=== PATIENT | female | born 1940 | race Caucasian/White ===

== ENCOUNTER 2018-07-22 19:09 | Emergency (ER) | payer MEDICARE, MEDICAID ==
[~2018-07-22] VITALS: Ht 175.3 cm; Wt 99.8 kg
[~2018-07-22 19:09] MED LIST: CLOT1CRE56 TOP; DIAZ10TA3 PO; HYDR-2551 PO; POTA10SO11 PO; PREMARIN PO; [UNRECOGNIZED DRUG - CODE]
[2018-07-22 19:37] VITALS: BP 157/86
[2018-07-22] MEDS ORDERED: DIAZEPAM 5 MG TAB PO ONE (22:30)
== END 2018-07-22 22:50 | disposition home or self-care (01) ==
LOC: ER 19:09
DX: L03.116 Cellulitis of left lower limb (principal); L03.115 Cellulitis of right lower limb; R60.9 Edema, unspecified; F19.20 Other psychoactive substance dependence, uncomplicated; I13.0 Hypertensive heart and chronic kidney disease with heart failure and stage 1 through stage 4 chronic kidney disease, or unspecified chronic kidney disease; N18.9 Chronic kidney disease, unspecified; J44.9 Chronic obstructive pulmonary disease, unspecified; K21.9 Gastro-esophageal reflux disease without esophagitis; E78.5 Hyperlipidemia, unspecified; Z86.73 Personal history of transient ischemic attack (TIA), and cerebral infarction without residual deficits; Z88.1 Allergy status to other antibiotic agents; Z88.2 Allergy status to sulfonamides; Z88.7 Allergy status to serum and vaccine; Z91.041 Radiographic dye allergy status

== ENCOUNTER 2018-12-13 16:37 | Emergency (ER) | payer MEDICARE, MEDICAID ==
[~2018-12-13] VITALS: Ht 175.3 cm; Wt 98.0 kg
[2018-12-13 17:36] VITALS: BP 153/80
== END 2018-12-13 18:09 | disposition home or self-care (01) ==
LOC: ER 16:37
DX: I10 Essential (primary) hypertension (principal); F41.9 Anxiety disorder, unspecified; F17.210 Nicotine dependence, cigarettes, uncomplicated; I13.0 Hypertensive heart and chronic kidney disease with heart failure and stage 1 through stage 4 chronic kidney disease, or unspecified chronic kidney disease; N18.9 Chronic kidney disease, unspecified; I50.9 Heart failure, unspecified; J44.9 Chronic obstructive pulmonary disease, unspecified; F32.9 Major depressive disorder, single episode, unspecified; K21.9 Gastro-esophageal reflux disease without esophagitis; E78.5 Hyperlipidemia, unspecified; Z76.0 Encounter for issue of repeat prescription; Z90.710 Acquired absence of both cervix and uterus; Z86.73 Personal history of transient ischemic attack (TIA), and cerebral infarction without residual deficits; Z88.1 Allergy status to other antibiotic agents; Z88.2 Allergy status to sulfonamides

== ENCOUNTER → 2019-01-31 | Outpatient (CLI) | payer MEDICARE, MEDICAID ==
[2019-01-31 14:55] LABS: Basophils # (auto) 0.1 uL; Basophils % (auto) 0.6 % (0.0-2.0); Eosinophils # (auto) 0.2 uL; Eosinophils % (auto) 2.4 % (0.0-7.0); Hematocrit 49.1 % (36.0-46.0); Hemoglobin 16.3 g/dL (12.2-16.2); Lymphocytes # (auto) 3.3 uL; Mean Corpuscular Hemoglobin 30.6 pg (28.0-32.0); Mean Corpuscular Hgb Conc. 33.2 g/dL (32.0-36.0); Mean Corpuscular Volume 92.2 fL (80.0-100.0); Monocytes # (auto) 0.8 uL; Monocytes % (auto) 8.5 % (0.0-12.0); Neutrophils # (auto) 5.1 uL; Neutrophils % (auto) 53.5 % (37.0-80.0); Nucleated Red Blood Cells % 0.1 %; Platelet Count (auto) 351 10^3/uL (140-450); Red Blood Cells 5.33 10^6/uL (4.0-5.20); White Blood Cell 9.5 10^3/uL (4.4-10.8)
[2019-01-31 15:12] LABS: Albumin 3.4 g/dL (3.4-5.0); Potassium 3.5 mmol/L (3.5-5.1)
[2019-01-31 15:17] LABS: BUN/Creatinine Ratio 15.4; Bilirubin, Total 0.4 mg/dL (0.2-1.0); Total Protein 8.1 g/dL (6.4-8.2)
== END | disposition home or self-care (01) ==
LOC: LAB 14:28
PROVIDERS: ATTEND Internal Medicine
DX: J44.9 Chronic obstructive pulmonary disease, unspecified (principal); E11.22 Type 2 diabetes mellitus with diabetic chronic kidney disease; I13.0 Hypertensive heart and chronic kidney disease with heart failure and stage 1 through stage 4 chronic kidney disease, or unspecified chronic kidney disease; I50.9 Heart failure, unspecified; N18.9 Chronic kidney disease, unspecified; E78.5 Hyperlipidemia, unspecified; E55.9 Vitamin D deficiency, unspecified
CPT/HCPCS: 36415; 80053; 80061; 82306; 83036; 84443; 85025

== ENCOUNTER 2020-09-10 19:26 | Inpatient (IN) | payer MEDICARE, MEDICAID ==
[~2020-09-10] VITALS: Ht 172.7 cm; Wt 105.0 kg
[2020-09-10] MEDS ORDERED: SODIUM CHLORIDE 0.9% 1,000 ML IVB ONE (20:00)
[2020-09-10 20:15] LABS: Basophils # (auto) 0.1 10 ^3/uL (0-0.2); Basophils % (auto) 0.5 % (0.0-2.0); Eosinophils # (auto) 0.2 10 ^3/uL (0-0.8); Eosinophils % (auto) 1.7 % (0.0-7.0); Hematocrit 46.3 % (36.0-46.0); Hemoglobin 15.4 g/dL (12.2-16.2); Lymphocytes # (auto) 2.1 10 ^3/uL (0.4-5.4); Lymphocytes % (auto) 21.6 % (10.0-50.0); Mean Corpuscular Hemoglobin 31.2 pg (28.0-32.0); Mean Corpuscular Hgb Conc. 33.3 g/dL (32.0-36.0); Mean Corpuscular Volume 93.5 fL (80.0-100.0); Monocytes # (auto) 0.7 10 ^3/uL (0-1.3); Monocytes % (auto) 7.5 % (0.0-12.0); Neutrophils # (auto) 6.6 10 ^3/uL (1.6-8.6); Neutrophils % (auto) 68.7 % (37.0-80.0); Nucleated Red Blood Cells % 0.1 %; Platelet Count (auto) 343 10^3/uL (140-450); Red Blood Cells 4.96 10^6/uL (4.0-5.20); Red Cell Distribution Width 12.8 % (11.8-14.3); White Blood Cell 9.5 10^3/uL (4.4-10.8)
[2020-09-10 20:33] LABS: Albumin 3.3 g/dL (3.4-5.0); Anion Gap 5 (5-15); Blood Urea Nitrogen 11 mg/dL (7-18); Calcium 9.1 mg/dL (8.5-10.1); Carbon Dioxide 31 mmol/L (21-32); Chloride 102 mmol/L (98-107); Glucose 138 mg/dL (74-106); Potassium 3.4 mmol/L (3.5-5.1); Sodium 138 mmol/L (136-145)
[2020-09-10 20:38] LABS: Alanine Aminotransferase 18 U/L (13-56); Alkaline Phosphatase 73 U/L (45-117); Aspartate Aminotransferase 21 U/L (15-37); BUN/Creatinine Ratio 14.5; Bilirubin, Total 0.2 mg/dL (0.2-1.0); GFR African American 94 mL/min; GFR Non-African American 78 mL/min; Total Protein 7.8 g/dL (6.4-8.2)
[2020-09-10 21:02] LABS: Partial Thromboplastin Time 25.9 sec (23.0-31.2)
[2020-09-10] MEDS ORDERED: NICOTINE 21MG/24 HR TOPICAL PATCH TD ONE (22:00)
[2020-09-10 22:28] LABS: Urine Bacteria FEW /hpf (None Seen); Urine Blood Negative /uL (Negative); Urine Specific Gravity 1.011 (1.001-1.035); Urine WBC 1 /hpf (0 - 5)
[2020-09-11] MEDS ORDERED: hydrALAZINE HCL 25 MG TAB PO ONE ×2 (00:15→12:15)
[2020-09-11] MEDS ORDERED: HCTZ25T PO (00:21)
[2020-09-11] MEDS ORDERED: POTA10TA75 (00:21)
[2020-09-11] MEDS ORDERED: HYDR-2691 PO ×2 (00:21→10:59)
[2020-09-11] MEDS ORDERED: CHOL20007 PO (00:21)
[2020-09-11] MEDS ORDERED: DIAZ5TAB3 PO (00:21)
[2020-09-11] MEDS ORDERED: MORPHINE SULF INJ 2 MG/ML SYRINGE 1ML IV PRN (01:30)
[2020-09-11] MEDS ORDERED: DOCUSATE SOD 100 MG CAP PO PRN (01:30)
[2020-09-11] MEDS ORDERED: ACETAMINOPHEN 325 MG TAB PO PRN (01:30)
[2020-09-11] MEDS ORDERED: NITROGLYCERIN 0.4 MG SL TAB SL PRN (01:30)
[2020-09-11] MEDS ORDERED: HYDROcodone-ACET 5/325MG TAB PO PRN (01:30)
[2020-09-11] MEDS ORDERED: ONDANSETRON HCL 4 MG/2 ML VIAL IV PRN (01:30)
[2020-09-11] MEDS ORDERED: POTASSIUM CHL 20 Meq TABLET PO ONE ×2 (02:00→02:53)
--- NOTE | 2020-09-11 02:58 | NUR ---
BACK PAIN PATIENT REQUESTING TYLENOL FOR BACK PAIN RATED LEVEL 5/10.
[2020-09-11 05:00] VITALS: BP 122/59
--- NOTE | 2020-09-11 07:30 | NUR ---
Opening Shift Note Assuming care of patient at this time. Patient is awake and alert. Patient denies pain. Patient shows no signs or symptoms of distress or shortness of breath. Bed is locked and lowered with side rails up x2. Instructed patient on plan of care for today and to call for assistance as needed. Call light within reach. Will continue to round hourly and as needed.
--- NOTE | 2020-09-11 08:00 | NUR ---
Skin Assessment Patient has visible, "cellulitis" per patient that has been diagnosed by previous MD. Patient's legs appear to be edematous, rough, and calloused. Patient refuses to allow slipper socks to be taken off to assess feet. Patient refuses to allow RN to touch legs and feet to fully assess and palpate pulses. Patient states, "I have been dealing with this for years and my doctor is aware. There is nothing you can do for them. Please don't touch them." Educated patient that due to her syncope that circulation could potentially be an issue. Patient states, "It's not." Patient refuses to have pictures taken at this time. Patient also refuses skin assessment of any other parts of her body.
[2020-09-11 08:38] VITALS: BP 129/58
[2020-09-11 08:46] LABS: Basophils # (auto) 0.1 10 ^3/uL (0-0.2); Basophils % (auto) 0.8 % (0.0-2.0); Eosinophils # (auto) 0.3 10 ^3/uL (0-0.8); Hematocrit 45.3 % (36.0-46.0); Hemoglobin 15.3 g/dL (12.2-16.2); Mean Corpuscular Hemoglobin 31.3 pg (28.0-32.0); Mean Corpuscular Hgb Conc. 33.9 g/dL (32.0-36.0); Mean Corpuscular Volume 92.6 fL (80.0-100.0); Monocytes # (auto) 0.7 10 ^3/uL (0-1.3); Neutrophils # (auto) 6.3 10 ^3/uL (1.6-8.6); Neutrophils % (auto) 60.2 % (37.0-80.0); Platelet Count (auto) 322 10^3/uL (140-450); Red Blood Cells 4.89 10^6/uL (4.0-5.20); White Blood Cell 10.5 10^3/uL (4.4-10.8)
[2020-09-11 09:01] LABS: Calcium 9.2 mg/dL (8.5-10.1); Cholesterol 198 mg/dL (< 200); Potassium 3.3 mmol/L (3.5-5.1)
[2020-09-11 09:04] LABS: HDL Cholesterol 55 mg/dL (40-59); LDL Cholesterol 119 mg/dL (< 100); Triglycerides 195 mg/dL (< 150)
[2020-09-11] MEDS ORDERED: hydrALAZINE HCL 25 MG TAB PO SCH ×2 (10:00→22:00)
[2020-09-11] MEDS ORDERED: ENOXAPARIN SOD 40 MG/0.4 ML SYRINGE SC SCH (10:00)
[2020-09-11] MEDS ORDERED: ZINC SULFATE 220mg CAP or TAB PO SCH (10:00)
[2020-09-11] MEDS ORDERED: ASPirin 81 mg TAB PO SCH (10:00)
[2020-09-11] MEDS ORDERED: ASCORBIC ACID 500 MG TAB PO SCH (10:00)
[2020-09-11] MEDS ORDERED: PANTOPRAZOLE 40 MG/10 ML VIAL INJ IV SCH (10:00)
[2020-09-11] MEDS ORDERED: MULTIPLE VITAMIN TAB PO SCH (10:00)
--- NOTE | 2020-09-11 12:14 | NUR ---
Refusing Carotid Doppler Patient is currently refusing carotid doppler at this time. Patient educated on reason why test was ordered and what process would entail. Patient still refuses. aware. Signed: 09/11/20 at 1215 by EVERARDO MATHUR RN RN
[2020-09-11] MEDS ORDERED: HCTZ 25 MG TAB PO ONE (12:15)
[2020-09-11] MEDS ORDERED: diazePAM 5 MG TAB PO PRN (12:15)
[2020-09-11 12:42] VITALS: BP 154/79
--- NOTE | 2020-09-11 16:30 | NUR ---
Wanting to Smoke Patient is upset because she wants to smoke and wants someone to take her downstairs to smoke. There is no one available to take patient to smoke. Offered patient a nicotine patch, but patient refused. dice person aware.
[2020-09-11 16:32] VITALS: BP 157/84
--- NOTE | 2020-09-11 18:59 | NUR ---
Closing Shift Note Patient continues to express desire to go and smoke. Explained that this RN is unable to take her to smoke. Patient continues to express frustration.
--- NOTE | 2020-09-11 19:18 | NUR ---
AMA Note LEIA TORRES states they want to leave the hospital Against Medical Advice (AMA). Patient encouraged to stay for further treatment/stabilization. Hospitalist paged to notify of patient's wishes. Patient advised of the risks and benefits of leaving AMA. Patient verbalized understanding. Patient encouraged to return to the ER if symptoms do not improve or worsen.
[2020-09-11] MEDS ORDERED: ATORVASTATIN 20 MG TAB PO SCH (22:00)
[2020-09-12] MEDS ORDERED: HCTZ 25 MG TAB PO SCH (10:00)
== END 2020-09-11 19:18 | disposition left against medical advice (07) | DRG 312 ==
LOC: ER 19:26 → EDUNIT# 19:26 → EDBD 19:26 → TELE 19:27 → TELE-CENTR 09-11 02:30
PROVIDERS: ADMIT Nurse Practitioner Family; ATTEND Family Medicine
DX: R55 Syncope and collapse (principal); I13.0 Hypertensive heart and chronic kidney disease with heart failure and stage 1 through stage 4 chronic kidney disease, or unspecified chronic kidney disease; L82.1 Other seborrheic keratosis; J44.9 Chronic obstructive pulmonary disease, unspecified; E66.01 Morbid (severe) obesity due to excess calories; E87.6 Hypokalemia; E78.5 Hyperlipidemia, unspecified; F17.210 Nicotine dependence, cigarettes, uncomplicated; I25.10 Atherosclerotic heart disease of native coronary artery without angina pectoris; M81.0 Age-related osteoporosis without current pathological fracture; N18.9 Chronic kidney disease, unspecified; F32.9 Major depressive disorder, single episode, unspecified; F41.9 Anxiety disorder, unspecified; K21.9 Gastro-esophageal reflux disease without esophagitis; Z53.29 Procedure and treatment not carried out because of patient's decision for other reasons; Z86.73 Personal history of transient ischemic attack (TIA), and cerebral infarction without residual deficits; Z90.710 Acquired absence of both cervix and uterus; Z88.1 Allergy status to other antibiotic agents; I50.9 Heart failure, unspecified
CPT/HCPCS: 36415; 70450; 71045; 80048; 80053; 80061; 81001; 83735; 83880; 84484; 85025; 85610; 85730; 93005; 93306; C9113; G0378

== ENCOUNTER 2020-10-24 00:39 | Emergency (ER) | payer MEDICARE, MEDICAID ==
[~2020-10-24] VITALS: Ht 170.2 cm; Wt 90.7 kg
[~2020-10-24 00:39] MED LIST changes: +CHOL20007 PO; -CLOT1CRE56 TOP; -DIAZ10TA3 PO; +DIAZ5TAB3 PO; +HCTZ25T PO; -HYDR-2551 PO; +HYDR-2691 PO; -POTA10SO11 PO; +POTA10TA75; -[UNRECOGNIZED DRUG - CODE]
[2020-10-24 02:46] LABS: Basophils # (auto) 0 10 ^3/uL (0-0.2); Basophils % (auto) 0.4 % (0.0-2.0); Eosinophils # (auto) 0.1 10 ^3/uL (0-0.8); Hemoglobin 16.7 g/dL (12.2-16.2); Lymphocytes # (auto) 1.7 10 ^3/uL (0.4-5.4); Lymphocytes % (auto) 15.2 % (10.0-50.0); Mean Corpuscular Hemoglobin 30.9 pg (28.0-32.0); Mean Corpuscular Hgb Conc. 33.4 g/dL (32.0-36.0); Mean Corpuscular Volume 92.5 fL (80.0-100.0); Monocytes # (auto) 0.7 10 ^3/uL (0-1.3); Neutrophils # (auto) 8.7 10 ^3/uL (1.6-8.6); Neutrophils % (auto) 77.4 % (37.0-80.0); Nucleated Red Blood Cells % 0.2 %; Platelet Count (auto) 375 10^3/uL (140-450); Red Cell Distribution Width 13.4 % (11.8-14.3); White Blood Cell 11.3 10^3/uL (4.4-10.8)
[2020-10-24 02:47] LABS: Urine Bacteria FEW /hpf (None Seen); Urine Blood 1+ /uL (Negative); Urine Mucus FEW (None Seen); Urine WBC 3 /hpf (0 - 5)
[2020-10-24 03:30] LABS: Albumin 3.3 g/dL (3.4-5.0); Calcium 8.9 mg/dL (8.5-10.1); Potassium 3.7 mmol/L (3.5-5.1)
[2020-10-24 03:35] LABS: BUN/Creatinine Ratio 17.3; Bilirubin, Total 0.3 mg/dL (0.2-1.0); Total Protein 7.9 g/dL (6.4-8.2)
[2020-10-24] MEDS ORDERED: cefTRIAXone 1GM/50ML D5W 50 ML IV ONE (04:15)
[2020-10-24] MEDS ORDERED: CLINDAMYCIN 600MG IV 50 ML IV ONE (04:15)
[2020-10-24 05:34] VITALS: BP 150/70
== END 2020-10-24 05:45 | disposition home or self-care (01) ==
LOC: EDBD 00:39 → ER 00:39
DX: D72.829 Elevated white blood cell count, unspecified (principal); R73.9 Hyperglycemia, unspecified; I13.0 Hypertensive heart and chronic kidney disease with heart failure and stage 1 through stage 4 chronic kidney disease, or unspecified chronic kidney disease; N18.9 Chronic kidney disease, unspecified; I50.9 Heart failure, unspecified; K21.9 Gastro-esophageal reflux disease without esophagitis; E78.5 Hyperlipidemia, unspecified; J44.9 Chronic obstructive pulmonary disease, unspecified; F17.210 Nicotine dependence, cigarettes, uncomplicated; Z86.73 Personal history of transient ischemic attack (TIA), and cerebral infarction without residual deficits; Z90.710 Acquired absence of both cervix and uterus; Z88.1 Allergy status to other antibiotic agents; Z88.2 Allergy status to sulfonamides
CPT/HCPCS: 36415; 80053; 81001; 85025; J0696; J3490

== ENCOUNTER 2024-08-10 16:18 | Inpatient (IN) | payer MEDICARE, MEDICAID ==
[~2024-08-10] VITALS: Ht 162.6 cm; Wt 72.7 kg
[~2024-08-10 16:18] MED LIST changes: -HCTZ25T PO; -HYDR-2691 PO; +HYDR25TA5 PO; +HYDR25TA87 PO; +POTA-264; -POTA10TA75
[2024-08-10] MEDS: SODIUM CHLORIDE 0.9% 1,000 ML IV ONE ×2 (16:30→17:07)
[2024-08-10] MEDS: cefTRIAXone 1GM/50ML D5W 50 ML IV ONE (17:07)
[2024-08-10 17:32] VITALS: PULSE 97; RESP 34; O2SAT 90
[2024-08-10] MEDS: CLINDAMYCIN 600MG IV 50 ML IV ONE (18:04)
[2024-08-10 18:37] VITALS: PULSE 82; RESP 24; O2SAT 96
[2024-08-10 18:45] LABS: Basophils # (auto) 0.1 10 ^3/uL (0-0.2); Basophils % (auto) 0.4 % (0.0-2.0); Eosinophils # (auto) 0 10 ^3/uL (0-0.8); Eosinophils % (auto) 0.2 % (0.0-7.0); Hematocrit 49.1 % (36.0-46.0); Hemoglobin 16.4 g/dL (12.2-16.2); Lymphocytes % (auto) 4.9 % (10.0-50.0); Mean Corpuscular Hemoglobin 30.2 pg (28.0-32.0); Mean Corpuscular Hgb Conc. 33.4 g/dL (32.0-36.0); Mean Corpuscular Volume 90.4 fL (80.0-100.0); Monocytes # (auto) 1.6 10 ^3/uL (0-1.3); Monocytes % (auto) 7.7 % (0.0-12.0); Neutrophils # (auto) 18.1 10 ^3/uL (1.6-8.6); Neutrophils % (auto) 86.8 % (37.0-80.0); Nucleated Red Blood Cells % 0.1 %; Platelet Count (auto) 308 10^3/uL (140-450); Red Blood Cells 5.43 10^6/uL (4.0-5.20); Red Cell Distribution Width 13.2 % (11.8-14.3); White Blood Cell 20.9 10^3/uL (4.4-10.8)
[2024-08-10 18:48] LABS: Chloride 98 mmol/L (98-107); Potassium 3.8 mmol/L (3.5-5.1); Sodium 133 mmol/L (136-145)
[2024-08-10 18:49] LABS: Anion Gap 7 (5-15); Calcium 10.3 mg/dL (8.7-10.4); Carbon Dioxide 28 mmol/L (20-31)
[2024-08-10 18:54] LABS: Blood Urea Nitrogen 36 mg/dL (9-23); Glucose 135 mg/dL (74-106)
[2024-08-10 19:35] VITALS: PULSE 78; RESP 28; O2SAT 99
[2024-08-10 19:37] LABS: Lactic Acid w/Reflex 2.3 mmol/L (0.4-2.0)
[2024-08-10 19:38] LABS: Urine Bacteria FEW /hpf (None Seen); Urine Blood 3+ /uL (Negative); Urine Clarity Turbid (Clear); Urine Color Orange (Yellow); Urine Hyaline Cast MOD /lpf (0 - 2); Urine Mucus FEW (None Seen); Urine Protein, UAD 1+ (Negative); Urine Specific Gravity 1.023 (1.001-1.035); Urine Urobilinogen 3 mg/dL (Negative); Urine WBC 48 /hpf (0 - 5); Urine pH 5.5 (5.0-9.0)
[2024-08-10] MEDS ORDERED: DOCUSATE SOD 100 MG CAP PO PRN (21:00)
[2024-08-10] MEDS ORDERED: hydrALAZINE HCL 20 MG/ML VL IV PRN (21:00)
[2024-08-10] MEDS ORDERED: ONDANSETRON HCL 4 MG/2 ML VIAL IV PRN (21:00)
[2024-08-10] MEDS ORDERED: ACETAMINOPHEN 500 MG TAB PO PRN (21:00)
[2024-08-10] MEDS ORDERED: HYDROcodone-ACET 5/325MG TAB PO PRN (21:00)
[2024-08-10] MEDS: SODIUM CHLORIDE 0.9% 1,000 ML IV SCH (21:00)
[2024-08-10] MEDS: ASCORBIC ACID 500 MG TAB PO SCH (22:00)
[2024-08-10] MEDS: ATORVASTATIN 20 MG TAB PO SCH (22:00)
[2024-08-10] MEDS ORDERED: NITROGLYCERIN 0.4 MG SL TAB SL PRN (22:00)
[2024-08-10] MEDS ORDERED: MORPHINE SULFATE INJ 2 MG/ml SYRG IV PRN (22:00)
[2024-08-10 23:58] VITALS: BP 130/55; PULSE 78; RESP 18; TEMP 98.2; O2SAT 91
[2024-08-11] VITALS (9 sets, daily range): BP systolic 111–130; BP diastolic 49–59; PULSE 74–88; RESP 16–20; TEMP 98–99.7; O2SAT 90–94
[2024-08-11] MEDS: CLINDAMYCIN 300MG IV 50 ML IV SCH (06:12)
[2024-08-11 06:52] LABS: Basophils # (auto) 0 10 ^3/uL (0-0.2); Basophils % (auto) 0.2 % (0.0-2.0); Eosinophils # (auto) 0 10 ^3/uL (0-0.8); Eosinophils % (auto) 0.1 % (0.0-7.0); Hematocrit 42.4 % (36.0-46.0); Hemoglobin 14.4 g/dL (12.2-16.2); Mean Corpuscular Hemoglobin 30.1 pg (28.0-32.0); Mean Corpuscular Volume 88.6 fL (80.0-100.0); Monocytes # (auto) 1.2 10 ^3/uL (0-1.3); Monocytes % (auto) 7.4 % (0.0-12.0); Neutrophils # (auto) 14.4 10 ^3/uL (1.6-8.6); Neutrophils % (auto) 86.3 % (37.0-80.0); Nucleated Red Blood Cells % 0.1 %; Platelet Count (auto) 394 10^3/uL (140-450); Red Blood Cells 4.78 10^6/uL (4.0-5.20); Red Cell Distribution Width 13.2 % (11.8-14.3); White Blood Cell 16.7 10^3/uL (4.4-10.8)
[2024-08-11 07:06] LABS: Alanine Aminotransferase 34 U/L (7-40); Albumin 3.4 g/dL (3.2-4.8); Alkaline Phosphatase 78 U/L (46-116); Anion Gap 9 (5-15); BUN/Creatinine Ratio 36.2 (10.0-20.0); Calcium 9.8 mg/dL (8.7-10.4); Carbon Dioxide 28 mmol/L (20-31); Chloride 100 mmol/L (98-107); Glucose 144 mg/dL (74-106); Potassium 3.2 mmol/L (3.5-5.1); Sodium 137 mmol/L (136-145)
[2024-08-11 07:07] LABS: Aspartate Aminotransferase 63 U/L (13-40); Bilirubin, Total 0.6 mg/dL (0.2-1.0); Total Protein 7.6 g/dL (5.7-8.2)
[2024-08-11 07:22] LABS: Blood Urea Nitrogen 25 mg/dL (9-23)
[2024-08-11] MEDS: ASPirin 81 mg TAB PO SCH (10:00)
[2024-08-11] MEDS: ZINC SULFATE 220mg CAP or TAB PO SCH (10:02)
[2024-08-11] MEDS: cefTRIAXone 1GM/50ML D5W 50 ML IV SCH (10:02)
[2024-08-11] MEDS: MULTIPLE VITAMIN TAB PO SCH (10:02)
[2024-08-11] MEDS ORDERED: traMADol HCL 50 MG TAB PO PRN (11:30)
[2024-08-11] MEDS: FLUCONAZOLE 200MG/100ML 100 ML IV ONE (12:04)
[2024-08-11] MEDS ORDERED: VANCOMYCIN PER PHARMACY 0 MG IV SCH (17:45)
[2024-08-11] MEDS: VANCOMYCIN 1.5GM/300ML 300 ML IV ONE (18:33)
[2024-08-11 18:49] LABS: Erythrocyte Sedimentation Rate 49 mm/hr (0-20)
[2024-08-11] MEDS: MORPHINE SULFATE INJ 2 MG/ml SYRG IV ONE (19:45)
[2024-08-11] MEDS: NYSTATIN-TRIAMCINOLONE TOPICAL CRE 15GM TOP SCH (22:00)
[2024-08-12] VITALS (7 sets, daily range): BP systolic 117–144; BP diastolic 49–64; PULSE 82–96; RESP 18–19; TEMP 97.6–98.7; O2SAT 90–96
[2024-08-12 07:56] LABS: Basophils # (auto) 0 10 ^3/uL (0-0.2); Basophils % (auto) 0.1 % (0.0-2.0); Eosinophils # (auto) 0.1 10 ^3/uL (0-0.8); Hematocrit 40.7 % (36.0-46.0); Hemoglobin 13.8 g/dL (12.2-16.2); Lymphocytes # (auto) 1.1 10 ^3/uL (0.4-5.4); Lymphocytes % (auto) 8.1 % (10.0-50.0); Mean Corpuscular Hemoglobin 30.4 pg (28.0-32.0); Mean Corpuscular Hgb Conc. 33.9 g/dL (32.0-36.0); Mean Corpuscular Volume 89.6 fL (80.0-100.0); Monocytes # (auto) 1.4 10 ^3/uL (0-1.3); Monocytes % (auto) 9.8 % (0.0-12.0); Neutrophils # (auto) 11.2 10 ^3/uL (1.6-8.6); Platelet Count (auto) 357 10^3/uL (140-450); Red Blood Cells 4.54 10^6/uL (4.0-5.20); Red Cell Distribution Width 13.1 % (11.8-14.3); White Blood Cell 13.9 10^3/uL (4.4-10.8)
[2024-08-12 08:34] LABS: Alanine Aminotransferase 34 U/L (7-40); Alkaline Phosphatase 74 U/L (46-116); Anion Gap 8 (5-15); Aspartate Aminotransferase 63 U/L (13-40); BUN/Creatinine Ratio 39.2 (10.0-20.0); Bilirubin, Total 0.4 mg/dL (0.2-1.0); Blood Urea Nitrogen 20 mg/dL (9-23); Calcium 9.3 mg/dL (8.7-10.4); Carbon Dioxide 29 mmol/L (20-31); Chloride 105 mmol/L (98-107); Glucose 115 mg/dL (74-106); Potassium 3.4 mmol/L (3.5-5.1); Sodium 142 mmol/L (136-145)
[2024-08-12 08:35] LABS: Total Protein 6.5 g/dL (5.7-8.2)
[2024-08-12] MEDS: FLUCONAZOLE 200MG/100ML 100 ML IV SCH (11:03)
[2024-08-12] MEDS: SOD CHL 0.9%/ KCL 40MEQ 1,000 ML IV SCH (15:54)
[2024-08-12] MEDS: POTASSIUM EFFERVESENT TAB 25 MEQ PO ONE (15:56)
[2024-08-12] MEDS: VANCOMYCIN 1GM/200ML PREMIX 200 ML IV SCH (17:39)
[2024-08-12] MEDS: methylPREDNISolone SOD SUCC 40 MG/ML VL IV SCH (23:46)
[2024-08-13] VITALS (8 sets, daily range): BP systolic 120–142; BP diastolic 56–71; PULSE 79–95; RESP 18–21; TEMP 97.4–98.2; O2SAT 90–96
[2024-08-13 06:27] LABS: Alanine Aminotransferase 36 U/L (7-40); Albumin 3.1 g/dL (3.2-4.8); Alkaline Phosphatase 82 U/L (46-116); Anion Gap 7 (5-15); Aspartate Aminotransferase 50 U/L (13-40); BUN/Creatinine Ratio 32.7 (10.0-20.0); Bilirubin, Total 0.3 mg/dL (0.2-1.0); Blood Urea Nitrogen 16 mg/dL (9-23); Calcium 9.7 mg/dL (8.7-10.4); Carbon Dioxide 30 mmol/L (20-31); Chloride 105 mmol/L (98-107); Glucose 147 mg/dL (74-106); Potassium 4.6 mmol/L (3.5-5.1); Sodium 142 mmol/L (136-145); Total Protein 6.9 g/dL (5.7-8.2)
[2024-08-13 11:14] LABS: Hematocrit 41.2 % (36.0-46.0); Hemoglobin 13.7 g/dL (12.2-16.2); Mean Corpuscular Hemoglobin 29.9 pg (28.0-32.0); Mean Corpuscular Hgb Conc. 33.2 g/dL (32.0-36.0); Mean Corpuscular Volume 90.2 fL (80.0-100.0); Platelet Count (auto) 389 10^3/uL (140-450); Red Blood Cells 4.57 10^6/uL (4.0-5.20); Red Cell Distribution Width 13.1 % (11.8-14.3); White Blood Cell 14.4 10^3/uL (4.4-10.8)
[2024-08-13 11:20] LABS: Band Neutrophils % (manual) 0; Basophils % (manual) 0 (0.0-2.0); Blast Cells 0; Eosinophils % (manual) 0 (0-7); Metamyelocytes % 0; Myelocytes % 0; Promyelocytes % 0; Reactive Lymphocytes 0
[2024-08-13 11:58] LABS: Lymphocytes % (manual) 10 (10.0-50.0); Monocytes % (manual) 2 (0-12); Platelet Estimate Adequate
[2024-08-14] VITALS (7 sets, daily range): BP systolic 133–150; BP diastolic 62–79; PULSE 57–83; RESP 16–18; TEMP 97.6–98.3; O2SAT 91–96
[2024-08-14 06:21] LABS: Basophils # (auto) 0 10 ^3/uL (0-0.2); Basophils % (auto) 0.1 % (0.0-2.0); Eosinophils # (auto) 0 10 ^3/uL (0-0.8); Eosinophils % (auto) 0.1 % (0.0-7.0); Hematocrit 40.8 % (36.0-46.0); Hemoglobin 13.5 g/dL (12.2-16.2); Lymphocytes # (auto) 1.1 10 ^3/uL (0.4-5.4); Mean Corpuscular Hemoglobin 30.2 pg (28.0-32.0); Mean Corpuscular Hgb Conc. 33.1 g/dL (32.0-36.0); Mean Corpuscular Volume 91.3 fL (80.0-100.0); Monocytes # (auto) 1.4 10 ^3/uL (0-1.3); Monocytes % (auto) 8.7 % (0.0-12.0); Neutrophils # (auto) 13.5 10 ^3/uL (1.6-8.6); Neutrophils % (auto) 84.1 % (37.0-80.0); Platelet Count (auto) 415 10^3/uL (140-450); Red Blood Cells 4.47 10^6/uL (4.0-5.20); Red Cell Distribution Width 13.2 % (11.8-14.3)
[2024-08-15] VITALS (8 sets, daily range): BP systolic 126–145; BP diastolic 53–65; PULSE 64–79; RESP 17–21; TEMP 98–98.6; O2SAT 92–97
[2024-08-15 07:29] LABS: Basophils # (auto) 0 10 ^3/uL (0-0.2); Basophils % (auto) 0.1 % (0.0-2.0); Eosinophils # (auto) 0 10 ^3/uL (0-0.8); Hematocrit 41.2 % (36.0-46.0); Hemoglobin 13.6 g/dL (12.2-16.2); Lymphocytes # (auto) 0.9 10 ^3/uL (0.4-5.4); Lymphocytes % (auto) 6.8 % (10.0-50.0); Mean Corpuscular Hgb Conc. 33.1 g/dL (32.0-36.0); Mean Corpuscular Volume 90.7 fL (80.0-100.0); Monocytes # (auto) 0.7 10 ^3/uL (0-1.3); Monocytes % (auto) 5.2 % (0.0-12.0); Neutrophils # (auto) 12.1 10 ^3/uL (1.6-8.6); Neutrophils % (auto) 87.9 % (37.0-80.0); Platelet Count (auto) 446 10^3/uL (140-450); Red Blood Cells 4.54 10^6/uL (4.0-5.20); Red Cell Distribution Width 13.1 % (11.8-14.3); White Blood Cell 13.7 10^3/uL (4.4-10.8)
[2024-08-15] MEDS: FUROSEMIDE 20 MG/2 ML VIAL IV ONE (08:30)
[2024-08-15] MEDS ORDERED: AZITHROMYCIN 500MG/ 250ML 250 ML IV SCH (11:00)
[2024-08-16] VITALS (8 sets, daily range): BP systolic 152–165; BP diastolic 69–97; PULSE 65–80; RESP 18–20; TEMP 97.6–98.5; O2SAT 94–96
[2024-08-16] MEDS ORDERED: DIA5T PO (11:03)
[2024-08-17 07:30] VITALS: PULSE 56; PULSE 60; RESP 15
[2024-08-17 09:30] VITALS: BP 143/87; PULSE 94; RESP 19; TEMP 98.4; O2SAT 95
[2024-08-17 13:43] VITALS: BP 147/70; PULSE 77; RESP 19; TEMP 98.5; O2SAT 96
[2024-08-17] MEDS ORDERED: ALPRAZolam 0.25 MG TAB PO ONE (14:15)
[2024-08-17 17:05] VITALS: BP 153/64; PULSE 71; RESP 19; TEMP 98.3; O2SAT 95
== END 2024-08-17 20:41 | DRG 871 ==
LOC: EDBD 16:18 → EEVIPCON 16:18 → EDUNIT# 16:18 → ER 16:18 → TELE-CENTR 21:58 → TELE 21:58 → TELE-CENTR 23:40
PROVIDERS: ADMIT Internal Medicine; ATTEND Internal Medicine
DX: A41.9 Sepsis, unspecified organism (principal); J69.0 Pneumonitis due to inhalation of food and vomit; L89.213 Pressure ulcer of right hip, stage 3; L03.116 Cellulitis of left lower limb; N39.0 Urinary tract infection, site not specified; J44.1 Chronic obstructive pulmonary disease with (acute) exacerbation; J44.0 Chronic obstructive pulmonary disease with (acute) lower respiratory infection; L03.115 Cellulitis of right lower limb; E86.0 Dehydration; R62.7 Adult failure to thrive; L89.152 Pressure ulcer of sacral region, stage 2; F41.9 Anxiety disorder, unspecified; L97.519 Non-pressure chronic ulcer of other part of right foot with unspecified severity; B36.9 Superficial mycosis, unspecified; E78.5 Hyperlipidemia, unspecified; F17.210 Nicotine dependence, cigarettes, uncomplicated; E87.6 Hypokalemia; I11.0 Hypertensive heart disease with heart failure; I50.9 Heart failure, unspecified; I25.10 Atherosclerotic heart disease of native coronary artery without angina pectoris; F32.A Depression, unspecified; K21.9 Gastro-esophageal reflux disease without esophagitis; Z88.2 Allergy status to sulfonamides; Z88.8 Allergy status to other drugs, medicaments and biological substances; Z88.6 Allergy status to analgesic agent; Z91.041 Radiographic dye allergy status; Z86.73 Personal history of transient ischemic attack (TIA), and cerebral infarction without residual deficits; Z88.1 Allergy status to other antibiotic agents; Z68.27 Body mass index [BMI] 27.0-27.9, adult; Z90.710 Acquired absence of both cervix and uterus
CPT/HCPCS: 36415; 71045; 73610; 73630; 73700; 80048; 80053; 80202; 81001; 82565; 83036; 83605; 83880; 85007; 85025; 85027; 85652; 87040; 87077; 87086; 87186; 87205; 93306; 93925; 96361; 96365; 96367; 99291; G0378; J1450; J3490